=== PATIENT | male | born 1950 | race Caucasian/White ===

== ENCOUNTER 2022-05-21 15:40 | Inpatient (IN) | payer MEDICARE ==
[~2022-05-21] VITALS: Ht 177.8 cm; Wt 62.6 kg
[2022-05-21 16:23] LABS: HEMATOCRIT 34.7 % (36.7-47.1); MEAN CORPUSCULAR HEMOGLOBIN 29.5 uug (23.8-33.4); MEAN CORPUSCULAR VOLUME 88.9 fL (73.0-96.2); PLATELET COUNT (AUTO) 259 K/uL (152-348)
[2022-05-21 16:38] LABS: ALANINE AMINOTRANSFERASE 16 U/L (16-63); ALKALINE PHOSPHATASE 115 U/L (50-136); ASPARTATE AMINOTRANSFERASE 15 U/L (15-37); BILIRUBIN,DIRECT 0.1 mg/dL (0.0-0.2); BILIRUBIN,TOTAL 0.3 mg/dL (0.2-1.0); CARBON DIOXIDE 31 mmol/L (21-32); CHLORIDE 109 mmol/L (98-107); CREATININE 0.9 mg/dL (0.6-1.3); GLUCOSE 114 mg/dL (74-106); POTASSIUM 4.2 mmol/L (3.5-5.1); TOTAL PROTEIN, SERUM 6.8 g/dL (6.4-8.2); UREA NITROGEN, BLOOD 14 mg/dL (7-18)
[2022-05-21 16:53] LABS: ACETAMINOPHEN < 2.0 ug/mL (10-30)
[2022-05-21 16:58] LABS: *BILIRUBIN,URIN NEGATIVE (NEGATIVE); *BLOOD, URINE NEGATIVE (NEGATIVE); *CLARITY,URINE CLEAR (CLEAR); *COLOR,URINE YELLOW (YELLOW); *KETONES,URINE NEGATIVE (NEGATIVE); *UROBILINOGEN,URINE 0.2 E.U./dl (NORMAL); LEUKOCYTE ESTERASE ,URINE NEGATIVE (NEGATIVE); NITRITE, URINE NEGATIVE (NEGATIVE); UGLUCOSE NEGATIVE (NEGATIVE)
[2022-05-21 17:00] LABS: *AMPHETAMINE, URINE NEGATIVE (NEGATIVE); *CANNABINOID, URINE NEGATIVE (NEGATIVE); *COCCAINE, URINE NEGATIVE (NEGATIVE); *PHENCYCLIDINE SCREEN,URINE NEGATIVE (NEGATIVE)
[2022-05-21 17:10] LABS: ETHANOL < 3 MG/DL (0-0)
[2022-05-21] MEDS ORDERED: MAGNESIUM HYDROXIDE 30 ML LIQUID UDC PO PRN (22:00)
[2022-05-21] MEDS ORDERED: TEMAZEPAM 7.5 MG CAPSULE PO PRN (22:00)
[2022-05-21] MEDS ORDERED: MAG HYDROX/AL HYDROX/SIMETH 30 ML LIQUID UDC PO PRN (22:00)
[2022-05-21 22:19] VITALS: BP 111/63
[2022-05-22 08:16] VITALS: BP 96/66
[2022-05-22] MEDS: DIVALPROEX 250 MG TABLET.DR PO SCH ×4 (09:00→17:00)
[2022-05-22] MEDS: risperiDONE-M 0.5 MG TAB.RAPDIS PO SCH ×2 (09:34→17:10)
[2022-05-22 15:00] VITALS: BP 136/65
[2022-05-22 20:59] VITALS: BP 119/63
[2022-05-23 07:55] VITALS: BP 122/69
[2022-05-23] MEDS: risperiDONE-M 0.5 MG TAB.RAPDIS PO SCH ×3 (08:34→16:37)
[2022-05-23] MEDS: DIVALPROEX 250 MG TABLET.DR PO SCH (08:36)
[2022-05-23 15:13] VITALS: BP 109/59
[2022-05-23 20:39] VITALS: BP 111/58
[2022-05-24 07:45] VITALS: BP 109/62
[2022-05-24] MEDS: risperiDONE-M 0.5 MG TAB.RAPDIS PO SCH ×3 (08:26→17:01)
[2022-05-24 17:29] VITALS: BP 117/73
[2022-05-24 19:45] VITALS: BP 123/58
[2022-05-25 07:52] VITALS: BP 117/56
[2022-05-25] MEDS: risperiDONE-M 0.5 MG TAB.RAPDIS PO SCH ×3 (08:19→16:40)
[2022-05-25 16:24] VITALS: BP 125/72
[2022-05-25 19:44] VITALS: BP_SYST 107; BP_SYST 95; BP_DIAS 51; BP_DIAS 67
[2022-05-25] MEDS: ACETAMINOPHEN 325 MG TABLET PO PRN (20:14)
[2022-05-25] MEDS: LORAZEPAM 0.5 MG TABLET PO PRN (23:09)
[2022-05-26 08:07] VITALS: BP 116/56
[2022-05-26] MEDS: risperiDONE-M 0.5 MG TAB.RAPDIS PO SCH ×3 (08:27→17:25)
[2022-05-26 16:18] VITALS: BP 111/59
[2022-05-26 20:52] VITALS: BP 116/65
[2022-05-27 08:00] VITALS: BP 97/58
[2022-05-27] MEDS: risperiDONE-M 0.5 MG TAB.RAPDIS PO SCH ×3 (08:24→16:47)
[2022-05-27 16:10] VITALS: BP 115/64
[2022-05-27 20:56] VITALS: BP 110/55
[2022-05-28 08:23] VITALS: BP 107/53
[2022-05-28] MEDS: risperiDONE-M 0.5 MG TAB.RAPDIS PO SCH ×3 (09:27→17:35)
[2022-05-28 15:47] VITALS: BP 111/58
[2022-05-28 20:00] VITALS: BP 114/59
[2022-05-29 07:55] VITALS: BP 131/82
[2022-05-29] MEDS: risperiDONE-M 0.5 MG TAB.RAPDIS PO SCH ×3 (08:41→16:20)
[2022-05-29 16:02] VITALS: BP 138/79
[2022-05-29 19:59] VITALS: BP 122/56
[2022-05-30 07:36] VITALS: BP 109/64
[2022-05-30] MEDS: risperiDONE-M 0.5 MG TAB.RAPDIS PO SCH ×3 (08:31→17:56)
[2022-05-30 16:09] VITALS: BP 116/67
[2022-05-30 20:02] VITALS: BP 111/64
[2022-05-30] MEDS ORDERED: risperiDONE 2 MG TABLET PO SCH (21:00)
[2022-05-31 07:52] VITALS: BP 108/55
[2022-05-31] MEDS: risperiDONE-M 0.5 MG TAB.RAPDIS PO SCH ×3 (08:22→16:16)
[2022-05-31 16:25] VITALS: BP 115/69
[2022-05-31 20:00] VITALS: BP 113/59
[2022-05-31] MEDS: risperiDONE 2 MG TABLET PO SCH (23:39)
[2022-06-01 08:07] VITALS: BP 107/61
[2022-06-01] MEDS: risperiDONE-M 0.5 MG TAB.RAPDIS PO SCH ×3 (08:16→16:32)
[2022-06-01 16:50] VITALS: BP 132/78
[2022-06-01 19:47] VITALS: BP 105/52
[2022-06-01] MEDS: risperiDONE 2 MG TABLET PO SCH (20:39)
[2022-06-02 07:45] VITALS: BP 104/59
[2022-06-02] MEDS: risperiDONE-M 0.5 MG TAB.RAPDIS PO SCH ×3 (08:28→16:24)
[2022-06-02 17:34] VITALS: BP 107/56
[2022-06-02 19:52] VITALS: BP 101/56
[2022-06-02] MEDS: risperiDONE 2 MG TABLET PO SCH (20:55)
[2022-06-03 08:00] VITALS: BP 120/66
[2022-06-03] MEDS: risperiDONE-M 0.5 MG TAB.RAPDIS PO SCH ×5 (08:50→20:40)
[2022-06-03 16:00] VITALS: BP 116/41
[2022-06-03 19:49] VITALS: BP 112/64
[2022-06-04 07:30] VITALS: BP 116/52
[2022-06-04 08:23] LABS: CREATININE 0.9 mg/dL (0.6-1.3); MAGNESIUM 2.2 mg/dL (1.8-2.4); POTASSIUM 4.1 mmol/L (3.5-5.1)
[2022-06-04] MEDS: risperiDONE-M 0.5 MG TAB.RAPDIS PO SCH ×4 (09:01→20:29)
[2022-06-04 15:17] VITALS: BP 117/61
[2022-06-04 20:00] VITALS: BP 111/60
[2022-06-05 07:30] VITALS: BP 112/62
[2022-06-05] MEDS: risperiDONE-M 0.5 MG TAB.RAPDIS PO SCH ×4 (08:22→20:18)
[2022-06-05 15:32] VITALS: BP 138/85
[2022-06-05 20:00] VITALS: BP 113/63
[2022-06-06] MEDS: LORAZEPAM 0.5 MG TABLET PO PRN (02:02)
[2022-06-06 07:49] VITALS: BP 107/59
[2022-06-06] MEDS: risperiDONE-M 0.5 MG TAB.RAPDIS PO SCH ×4 (08:53→21:11)
[2022-06-06 16:01] VITALS: BP 113/61
[2022-06-06 21:07] VITALS: BP 105/60
[2022-06-07 07:28] VITALS: BP 108/56
[2022-06-07] MEDS: risperiDONE-M 0.5 MG TAB.RAPDIS PO SCH ×4 (08:14→20:48)
[2022-06-07 16:30] VITALS: BP 103/59
[2022-06-07 19:45] VITALS: BP 109/57
[2022-06-08 07:38] VITALS: BP 102/59
[2022-06-08] MEDS: risperiDONE-M 0.5 MG TAB.RAPDIS PO SCH ×4 (08:20→21:35)
[2022-06-08] MEDS: HYDROCORTISONE 1% OINT 28.35 GM TUBE TOP SCH ×2 (12:32→16:11)
[2022-06-08] MEDS: ACETAMINOPHEN 325 MG TABLET PO PRN (15:14)
[2022-06-08 16:14] VITALS: BP 106/56
[2022-06-08 19:42] VITALS: BP 110/60
[2022-06-09 07:42] VITALS: BP 127/61
[2022-06-09] MEDS: HYDROCORTISONE 1% OINT 28.35 GM TUBE TOP SCH (08:04)
[2022-06-09] MEDS: risperiDONE-M 0.5 MG TAB.RAPDIS PO SCH ×2 (08:04→11:53)
== END 2022-06-09 12:09 | DRG 885 ==
LOC: ER 15:40 → GPS 18:26
PROVIDERS: ADMIT Psychiatry & Neurology Psychosomatic Medicine; ATTEND Nurse Practitioner Acute Care
DX: F31.9 Bipolar disorder, unspecified (principal); E87.0 Hyperosmolality and hypernatremia; F25.9 Schizoaffective disorder, unspecified; R79.89 Other specified abnormal findings of blood chemistry; Z88.2 Allergy status to sulfonamides; Z59.00 Homelessness unspecified; Z20.822 Contact with and (suspected) exposure to COVID-19; R41.9 Unspecified symptoms and signs involving cognitive functions and awareness
CPT/HCPCS: 36415; 83735; 85025; A4663; G0480; J3490